=== PATIENT | female | born 1950 | race Caucasian/White ===

== ENCOUNTER 2020-04-04 08:09 | Observation (INO) ==
[2020-04-04] MEDS ORDERED: Ipratropium/Albuterol Neb 3 ML IH ONE (08:42)
[2020-04-04] MEDS ORDERED: Ondansetron 4 MG/2 ML VIAL IVP ONE (08:49)
[2020-04-04 09:22] LABS: Basophils % 0.3 %; Hemoglobin 11.9 g/dL (11.5-15.4); Immature Granulocytes % 0.3 % (0-4); Lymphocytes # 0.8 K/mcL (0.6-4.6); Lymphocytes % 25.2 %; Mean Corpuscular HGB Conc 32.2 g/dL (31.6-35.5); Mean Corpuscular Hemoglobin 29.6 pg (28.0-33.3); Mean Platelet Volume 9.9 fL (9.4-12.4); Monocytes # 0.4 K/mcL (0.0-1.3); Monocytes % 10.6 %; Neutrophils # 2.1 K/mcL (1.6-8.9); Platelet Count 209 K/mcL (140-400); Red Blood Count 4.02 M/mcL (3.82-4.97); Segmented Neutrophils % 63.6 %; White Blood Count 3.3 K/mcL (4.3-11.1)
[2020-04-04 09:27] LABS: Prothrombin Time 11.1 Seconds (9.4-12.1)
[2020-04-04 09:30] LABS: Activated Partial Thrombo Time 26.8 Seconds (26.0-36.0)
[2020-04-04 09:44] LABS: Alanine Aminotransferase 35 Units/L (7-52); Albumin/Globulin Ratio 1.5 (1.1-2.2); Alkaline Phosphatase 76 Units/L (34-104); Aspartate Amino Transferase 26 Units/L (13-39); BUN/Creatinine Ratio 12 (6-26); Bilirubin,Direct 0.1 mg/dL (0.0-0.2); Bilirubin,Indirect 0.3 mg/dL (0.0-1.0); Bilirubin,Total 0.4 mg/dL (0.3-1.0); Blood Urea Nitrogen 8 mg/dL (8-23); Calcium 8.7 mg/dL (8.6-10.3); Carbon Dioxide 27 mEq/L (23-29); Chloride 101 mEq/L (98-107); Globulin 2.6 g/dL (2.4-3.5); Glucose 101 mg/dL (70-105); Lactate Dehydrogenase 156 Units/L (140-271); Magnesium 1.8 mg/dL (1.6-2.6); Osmolality,Calculated 282 (280-300); Phosphorous 2.3 mg/dL (2.7-4.5); Potassium 2.8 mEq/L (3.5-5.1); Sodium 137 mEq/L (136-145); Total Protein 6.6 g/dL (6.4-8.9); Troponin I < 0.03 ng/mL (< 0.04); eGFR For African Americans > 60 (> 60); eGFR For Non-African Americans > 60 (> 60)
[2020-04-04 10:02] LABS: Ferritin 114 ng/mL (10-120)
[2020-04-04 11:09] LABS: C-Reactive Protein 9 mg/L (Less than 10)
[2020-04-04 12:12] LABS: Bilirubin,Urine Negative (Negative); Blood,Urine Negative (Negative); Clarity,Urine Clear (Clear); Color,Urine Colorless (Yellow); Glucose,Urine (UA) Normal (Normal); Ketones,Urine 10 mg/dL (Negative); Leukocyte Esterase,Urine Negative (Negative); Nitrite,Urine Negative (Negative); Protein,Urine Negative (Neg-Trace); Specific Gravity,Urine 1.009 (1.010-1.025); Urobilinogen,Urine Normal (Normal)
[2020-04-04] MEDS ORDERED: Isovue-370 500 ML BOTTLE IVP ONE (12:23)
[2020-04-04] MEDS ORDERED: Potassium Phosphate 44 MEQ in 0.9 % Sodium Chloride 250 ML IVPB ONE (13:59)
[2020-04-04] MEDS ORDERED: Acetaminophen 325 MG TABLET PO PRN (14:00)
[2020-04-04] MEDS ORDERED: 0.9 % Sodium Chloride 1,000 ML IVC SCH (14:15)
[2020-04-04] MEDS: *HR* HYDROcodone/Acet 5/325 mg TABLET PO PRN ×2 (15:55→21:10)
[2020-04-04] MEDS: Ondansetron 4 MG/2 ML VIAL IVP PRN (21:10)
[2020-04-05 07:15] LABS: Hematocrit 34.5 % (35.3-44.9); Hemoglobin 11.3 g/dL (11.5-15.4); Mean Corpuscular HGB Conc 32.8 g/dL (31.6-35.5); Mean Corpuscular Hemoglobin 30.4 pg (28.0-33.3); Mean Corpuscular Volume 92.7 fL (83.0-100.0); Mean Platelet Volume 9.5 fL (9.4-12.4); Platelet Count 174 K/mcL (140-400); Red Blood Count 3.72 M/mcL (3.82-4.97); Red Cell Distribution Width 13.2 % (11.5-14.5); White Blood Count 2.6 K/mcL (4.3-11.1)
[2020-04-05 07:24] LABS: Prothrombin Time 11.9 Seconds (9.4-12.1)
[2020-04-05 07:36] LABS: BUN/Creatinine Ratio 13 (6-26); Blood Urea Nitrogen 8 mg/dL (8-23); Calcium 8.2 mg/dL (8.6-10.3); Carbon Dioxide 27 mEq/L (23-29); Chloride 104 mEq/L (98-107); Glucose 92 mg/dL (70-105); Lactate Dehydrogenase 151 Units/L (140-271); Magnesium 2.1 mg/dL (1.6-2.6); Osmolality,Calculated 284 (280-300); Potassium 3.1 mEq/L (3.5-5.1); Sodium 138 mEq/L (136-145); eGFR For African Americans > 60 (> 60); eGFR For Non-African Americans > 60 (> 60)
[2020-04-05 07:53] LABS: Ferritin 125 ng/mL (10-120)
[2020-04-05] MEDS: levoFLOXacin 750 MG TABLET PO SCH (08:27)
[2020-04-05 09:45] LABS: C-Reactive Protein 18 mg/L (Less than 10)
[2020-04-05] MEDS: Ondansetron 4 MG/2 ML VIAL IVP PRN (09:54)
[2020-04-05] MEDS: Ondansetron 4 MG/2 ML VIAL IVP SCH (15:45)
[2020-04-05] MEDS: *HR* HYDROcodone/Acet 5/325 mg TABLET PO PRN (21:23)
[2020-04-05 23:26] LABS: VBG HCO3 27 mEq/L (21-27); VBG PCO2 34 mmHg (41-51); VBG PH 7.52 pH Units (7.32-7.42); VBG PO2 109 mmHg (25-50)
[2020-04-05] MEDS ORDERED: *HR* LORazepam 0.5 MG TABLET PO PRN (23:31)
[2020-04-05 23:42] LABS: BUN/Creatinine Ratio 11 (6-26); Blood Urea Nitrogen 7 mg/dL (8-23); Carbon Dioxide 26 mEq/L (23-29); Chloride 100 mEq/L (98-107); Glucose 110 mg/dL (70-105); Osmolality,Calculated 277 (280-300); Potassium 3.6 mEq/L (3.5-5.1); Sodium 134 mEq/L (136-145); eGFR For African Americans > 60 (> 60); eGFR For Non-African Americans > 60 (> 60)
[2020-04-06] MEDS: Ondansetron 4 MG/2 ML VIAL IVP SCH ×2 (00:48→07:23)
[2020-04-06] MEDS ORDERED: *HR* Enoxaparin 40 MG/0.4 ML SYRINGE SQ SCH (06:00)
[2020-04-06 06:43] LABS: Basophils % 0.3 %; Hematocrit 35.1 % (35.3-44.9); Hemoglobin 11.9 g/dL (11.5-15.4); Immature Granulocytes % 0.3 % (0-4); Lymphocytes # 0.8 K/mcL (0.6-4.6); Lymphocytes % 25.2 %; Mean Corpuscular HGB Conc 33.9 g/dL (31.6-35.5); Mean Corpuscular Hemoglobin 30.9 pg (28.0-33.3); Mean Corpuscular Volume 91.2 fL (83.0-100.0); Mean Platelet Volume 9.5 fL (9.4-12.4); Monocytes # 0.3 K/mcL (0.0-1.3); Monocytes % 7.9 %; Neutrophils # 2.2 K/mcL (1.6-8.9); Platelet Count 181 K/mcL (140-400); Red Blood Count 3.85 M/mcL (3.82-4.97); Red Cell Distribution Width 13.1 % (11.5-14.5); Segmented Neutrophils % 66.3 %; White Blood Count 3.3 K/mcL (4.3-11.1)
[2020-04-06 06:51] LABS: Fibrinogen 364 mg/dL (169-393)
[2020-04-06 06:53] LABS: D-Dimer 806 ng/mLFEU (0-500)
[2020-04-06 07:05] LABS: BUN/Creatinine Ratio 11 (6-26); Blood Urea Nitrogen 7 mg/dL (8-23); Carbon Dioxide 27 mEq/L (23-29); Chloride 101 mEq/L (98-107); Glucose 104 mg/dL (70-105); Osmolality,Calculated 280 (280-300); Potassium 3.4 mEq/L (3.5-5.1); Sodium 136 mEq/L (136-145); eGFR For African Americans > 60 (> 60); eGFR For Non-African Americans > 60 (> 60)
[2020-04-06 07:23] LABS: Ferritin 126 ng/mL (10-120)
[2020-04-06] MEDS: levoFLOXacin 750 MG TABLET PO SCH (07:23)
[2020-04-06 07:58] VITALS: BP 123/67
== END 2020-04-06 13:35 | disposition home or self-care (01) ==
LOC: EMEROOARM 08:09 → 2NENU 08:09 → SUATTDRO 13:06 → 2NENU 13:34
PROVIDERS: ADMIT Internal Medicine; ATTEND Internal Medicine

== ENCOUNTER 2020-04-09 08:37 | Observation (INO) ==
[2020-04-09] MEDS ORDERED: 0.9 % Sodium Chloride 1,000 ML IVC ONE (08:53)
[2020-04-09] MEDS ORDERED: 0.9 % Sodium Chloride 1,000 ML ONE (08:55)
[2020-04-09 09:24] LABS: Basophils % 0.2 %; Eosinophils % 0.6 %; Hematocrit 37.4 % (35.3-44.9); Hemoglobin 12.5 g/dL (11.5-15.4); Immature Granulocytes % 0.6 % (0-4); Lymphocytes # 0.9 K/mcL (0.6-4.6); Lymphocytes % 17.1 %; Mean Corpuscular HGB Conc 33.4 g/dL (31.6-35.5); Mean Corpuscular Hemoglobin 30.2 pg (28.0-33.3); Mean Corpuscular Volume 90.3 fL (83.0-100.0); Mean Platelet Volume 9.7 fL (9.4-12.4); Monocytes # 0.5 K/mcL (0.0-1.3); Monocytes % 9.4 %; Neutrophils # 3.7 K/mcL (1.6-8.9); Platelet Count 221 K/mcL (140-400); Red Blood Count 4.14 M/mcL (3.82-4.97); Red Cell Distribution Width 12.6 % (11.5-14.5); Segmented Neutrophils % 72.1 %
[2020-04-09 09:25] LABS: White Blood Count 5.1 K/mcL (4.3-11.1)
[2020-04-09 09:26] LABS: INR 1.1; Prothrombin Time 13.2 Seconds (9.4-12.1)
[2020-04-09 09:28] LABS: Activated Partial Thrombo Time 25.5 Seconds (26.0-36.0)
[2020-04-09 09:42] LABS: Alanine Aminotransferase 32 Units/L (7-52); Albumin 4.1 g/dL (3.5-5.7); Albumin/Globulin Ratio 1.3 (1.1-2.2); Alkaline Phosphatase 104 Units/L (34-104); Aspartate Amino Transferase 31 Units/L (13-39); BUN/Creatinine Ratio 13 (6-26); Bilirubin,Direct 0.1 mg/dL (0.0-0.2); Bilirubin,Indirect 0.6 mg/dL (0.0-1.0); Bilirubin,Total 0.7 mg/dL (0.3-1.0); Blood Urea Nitrogen 11 mg/dL (8-23); Calcium 9.5 mg/dL (8.6-10.3); Carbon Dioxide 27 mEq/L (23-29); Chloride 96 mEq/L (98-107); Globulin 3.2 g/dL (2.4-3.5); Glucose 97 mg/dL (70-105); Lactate Dehydrogenase 206 Units/L (140-271); Magnesium 2.1 mg/dL (1.6-2.6); Osmolality,Calculated 279 (280-300); Phosphorous 1.7 mg/dL (2.7-4.5); Potassium 3.1 mEq/L (3.5-5.1); Sodium 135 mEq/L (136-145); Total Protein 7.3 g/dL (6.4-8.9); Troponin I < 0.03 ng/mL (< 0.04); eGFR For African Americans > 60 (> 60); eGFR For Non-African Americans > 60 (> 60)
[2020-04-09] MEDS ORDERED: Isovue-370 500 ML BOTTLE IVP ONE (09:56)
[2020-04-09 09:59] LABS: Ferritin 215 ng/mL (10-120)
[2020-04-09 10:20] LABS: C-Reactive Protein 34 mg/L (Less than 10)
[2020-04-09 11:07] LABS: Procalcitonin 0.05 ng/mL (0.00-0.15)
[2020-04-09] MEDS ORDERED: Potassium Chloride Elixir 20 MEQ/15 ML UDC PO ONE (11:38)
[2020-04-09] MEDS ORDERED: 0.9 % Sodium Chloride 1,000 ML IVC SCH (16:15)
[2020-04-09] MEDS ORDERED: Naloxone 0.4 MG/ML INJ IVP PRN (16:23)
[2020-04-09] MEDS ORDERED: Ondansetron ODT 4 MG TAB.RAPDIS SL PRN (16:23)
[2020-04-09] MEDS ORDERED: Dexamethasone Sodium Phos/PF 10 MG/ML VIAL IVP SCH (16:30)
[2020-04-09 18:04] LABS: Thyroid Stimulating Hormone 2.976 mcIU/mL (0.340-5.600)
[2020-04-09] MEDS: Dexamethasone 4 MG/ML VIAL IVP SCH (18:39)
[2020-04-09] MEDS: Famotidine 20 MG TABLET PO SCH (20:07)
[2020-04-10] MEDS ORDERED: *HR* Enoxaparin 40 MG/0.4 ML SYRINGE SQ SCH (06:00)
[2020-04-10 06:18] LABS: Magnesium 2.4 mg/dL (1.6-2.6)
[2020-04-10 06:19] LABS: BUN/Creatinine Ratio 18 (6-26); Blood Urea Nitrogen 12 mg/dL (8-23); Carbon Dioxide 25 mEq/L (23-29); Chloride 101 mEq/L (98-107); Glucose 127 mg/dL (70-105); Osmolality,Calculated 279 (280-300); Potassium 4.3 mEq/L (3.5-5.1); Sodium 134 mEq/L (136-145); eGFR For African Americans > 60 (> 60); eGFR For Non-African Americans > 60 (> 60)
[2020-04-10 10:25] VITALS: BP 122/70
[2020-04-10] MEDS: Dexamethasone 4 MG/ML VIAL IVP SCH (12:11)
[2020-04-10] MEDS: Famotidine 20 MG TABLET PO SCH (12:12)
== END 2020-04-10 16:01 | disposition home or self-care (01) ==
LOC: 2NENU 08:37 → EMEROOARM 08:37 → SUATTDRO 14:24 → 2NENU 16:26
PROVIDERS: ADMIT Family Medicine; ATTEND Student in an Organized Health Care Education/Training Program